=== PATIENT | male | born 1975 | race Hispanic/Latino ===

== ENCOUNTER 2019-04-21 21:01 | Emergency (ER) | payer SELFPAY ==
[2019-04-21] MEDS ORDERED: Adacel (T-DAP) 0.5 ML SYRINGE ONE (22:29)
--- NOTE | 2019-04-21 23:04 | RAD ---
AP pelvis one view HISTORY: Injury. FINDINGS: Very mild degenerative changes of the hips. Sacral alae and pelvic rings are intact. No acu te fracture or dislocation. IMPRESSION: No acute osseous abnormalities are demonstrated.
--- NOTE | 2019-04-21 23:05 | RAD ---
Right hip 2 views HISTORY: Injury. FINDINGS: Mild joint space narrowing and osteophytosis. Femoral head contour is maintained. No acute fracture or dislocation. Incomplete posterior fusion at the S1 level of the spine. IMPRESSION: Mild osteoarthritic changes right hip.
--- NOTE | 2019-04-21 23:06 | RAD ---
Left knee 4 views HISTORY: Left knee pain. FINDINGS: Joint spaces are preserved. No acute fracture, dislocation, or fluid distention of the supr apatellar bursa. IMPRESSION: Normal exam.
== END 2019-04-21 23:21 | disposition home or self-care (01) ==
LOC: ERS 21:01
DX: S70.01XA Contusion of right hip, initial encounter (principal); L03.116 Cellulitis of left lower limb; W17.89XA Other fall from one level to another, initial encounter
CPT/HCPCS: 72170; 90471; 90715